=== PATIENT | male | born 1975 | race Caucasian/White ===

== ENCOUNTER 2020-04-29 23:24 | Emergency (ER) | payer BC, MEDICAID ==
[~2020-04-29] VITALS: Ht 175.3 cm; Wt 95.7 kg
[2020-04-29 23:58] VITALS: BP 176/96
[2020-04-30] MEDS ORDERED: Tetanus/Diptheria/Pertussis IM ONE
[2020-04-30] MEDS ORDERED: Augmentin 875mg Tab ORAL ONE
[2020-04-30] MEDS ORDERED: Bacitracin Oint UD TOPIC ONE
[2020-04-30] MEDS ORDERED: BACITRACIN15 GM TOPIC (00:17)
[2020-04-30] MEDS ORDERED: IBUPROFEN600 M1 ORAL (00:17)
[2020-04-30] MEDS ORDERED: AUGMENTIN 875-1 EAC1 ORAL (00:17)
[2020-04-30 00:18] VITALS: BP 176/96
--- NOTE | 2020-04-30 02:48 | Emergency Room Report ---
History of Present Illness General Chief Complaint: Animal Bite Source: Patient Present Illness HPI 44-year-old male presents status post cat bite. Bitten by his by a cat today on the left hand. States he knows the pleat taper of the cat. Cat has been vaccinated. Pain is dull/tingly to the left arm. 5 out of 10, radiating up the arm. Denies any bleeding. Tetanus unknown. No other aggravating relieving factors. 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 Patient History Past Medical History: none Past Surgical History: none Pertinent Family History: none Social History: Denies: smoking, alcohol use, drug use Immunizations: UTD Reviewed Nursing Documentation: PMH: Agreed; PSxH: Agreed Review of Systems All Other Systems: negative except mentioned in HPI Physical Exam Vital Signs Date Time Temp Pulse Resp B/P (MAP) Pulse Ox O2 Delivery O2 Flow Rate FiO2 04/29/20 23:43 98.4 65 16 176/96 (122) 98 Room Air Sp02 EP Interpretation: reviewed, normal General Appearance: no apparent distress, alert, GCS 15, non-toxic Head: normocephalic, atraumatic Eyes: bilateral eye normal inspection, bilateral eye PERRL ENT: hearing grossly normal, normal pharynx, no angioedema, normal voice Neck: full range of motion, supple/symm/no masses Respiratory: chest non-tender, lungs clear, normal breath sounds, speaking full sentences Cardiovascular #1: regular rate, rhythm, no edema Cardiovascular #2: 2+ carotid (R), 2+ carotid (L), 2+ radial (R), 2+ radial (L), 2+ dorsalis pedis (R), 2+ dorsalis pedis (L) Gastrointestinal: normal bowel sounds, non tender, soft, non-distended, no guarding, no rebound Rectal: deferred Genitourinary: normal inspection, no CVA tenderness Musculoskeletal: back normal, normal range of motion, gait/station normal, non- tender Neurologic: alert, motor strength/tone normal, oriented x3, sensory intact, responsive, speech normal Psychiatric: judgement/insight normal, memory normal, mood/affect normal, no suicidal/homicidal ideation Reflexes: 3+ bicep (R), 3+ bicep (L), 3+ tricep (R), 3+ tricep (L), 3+ knee (R), 3+ knee (L) Skin: other - puncture harding to L hand/wrist Lymphatic: no adenopathy Medical Decision Making Diagnostic Impression: Primary Impression: Cat bite Qualified Codes: W55.01XA - Bitten by cat, initial encounter ER Course Hospital Course 44 yo M presents s/p cat bite L arm Differential diagnoses include: abscess, cellulitis, ankle fracture, dislocation Clinical course Patient placed on stretcher. After initial history and physical, wound is irrigated. I ordered TDAP, augmentin I discussed findings with patient. Will discharge with antibiotics. Safe for discharge and close outpatient follow-up Diagnosis -cat bite Stable and discharged to home with prescription Rx motrin, augmentin. Followup with PMD. Return to ED if symptoms recur or worsen Last Vital Signs Date Time Temp Pulse Resp B/P (MAP) Pulse Ox O2 Delivery O2 Flow Rate FiO2 04/30/20 00:18 98.4 66 16 176/96 98 Room Air Status: improved Disposition: HOME, SELF-CARE Condition: Stable Scripts Bacitracin (Bacitracin) 28.4 Gm Oint...g. 1 APPLIC TOPIC THREE TIMES A DAY, #28.4 GM Prov: Sincere Trimble MD 04/30/20 Ibuprofen* (MOTRIN*) 600 Mg Tablet 600 MG ORAL Q8H PRN for FOR PAIN, #30 TAB 0 Refills Prov: Sincere Trimble MD 04/30/20 Amoxicillin/Potassium Clav 875-125* (AUGMENTIN 875-125 TABLET*) 1 Each Tablet 1 TAB ORAL TWICE A DAY, #14 TAB Prov: Sincere Trimble MD 04/30/20 Referrals: NOT CHOSEN IPA/,REFERRING (PCP) Patient Instructions: Animal Bite Sincere Trimble MD Apr 30, 2020 02:47
== END 2020-04-30 00:19 | disposition home or self-care (01) ==
LOC: EMR 04-30 00:19
DX: S61.532A Puncture wound without foreign body of left wrist, initial encounter (principal); W55.01XA Bitten by cat, initial encounter; Y92.9 Unspecified place or not applicable; Z23 Encounter for immunization
CPT/HCPCS: 90471; 90715; Z7502; 99282